=== PATIENT | female | born 1960 ===

== ENCOUNTER 2025-03-10 08:21 | Outpatient (CLI) | payer BC | END 2025-03-10 08:22 | disposition home or self-care (01) | LOC: CSHSLEEP 08:21 | PROVIDERS: ATTEND Physician Assistant | DX: G47.33 Obstructive sleep apnea (adult) (pediatric) (principal); R53.83 Other fatigue; I50.9 Heart failure, unspecified; I25.10 Atherosclerotic heart disease of native coronary artery without angina pectoris; R06.83 Snoring | CPT/HCPCS: 95800 ==